=== PATIENT | female | born 1950 | race Caucasian/White ===

== ENCOUNTER 2017-02-09 13:22 | Inpatient (IN) | payer MEDICARE, MEDICAID ==
[~2017-02-09] VITALS: Ht 162.5 cm; Wt 85.5 kg
--- NOTE | 2017-02-09 | NUR ---
PRN MORPHINE EFFECTIVE FOR A SHORT TIME PER PT.
[~2017-02-09 13:22] MED LIST: AMBIEN10 M1 PO; AMBIEN10 MG PO; ATIVAN0.5 MG PO; BENTYL10 MG PO; CELEXA40 MG PO; CIPROFLOXACIN500 MG PO; COZAAR25 MG PO; FLAGYL500 MG PO; GEMFIBROZIL600 MG PO; HUMALOG100 U/ML SC; IMODIUM ADVANCE1 TAB; LANTUS100 U/ML SC; LEVOTHYROXIN0.025 MG PO; LOSARTAN POTASS50 MG PO; METFORMIN500 MG PO; MOTRIN800 MG PO; Metformin Hydr500 MG PO; NEXIUM40 MG PO; NOVOLOG 70/30 M10 ML; NOVOLOG 70/30 M10 ML SC; PRILOSEC40 MG PO; PROBIOTIC FORMU1 CAP PO; VALIUM10 MG PO; VICODIN 5/500 505 MG PO; VICODIN 500 MG-1 TAB PO; VICODIN1 TAB PO
[2017-02-09 13:33] VITALS: BP 112/52
[2017-02-09 14:02] LABS: BASO # 0.1 10*3/uL (0.0-0.1); BASO % 0.5 % (0.0-1.0); EOS # 0.2 10*3/uL (0.0-0.4); HEMATOCRIT 40.8 % (37.0-47.0); HEMOGLOBIN 13.9 g/dl (12.0-16.0); LYMPH # 3.7 10*3/uL (1.3-4.4); LYMPH % 38.6 % (27.0-41.0); MEAN CELL VOLUME 92.5 fl (81.0-99.0); MEAN CORPUSCULAR HGB 31.5 pg (27.0-31.0); MEAN CORPUSCULAR HGB CONC 34.1 g/dl (33.0-37.0); MEAN PLATELET VOLUME 9.9 fl (9.6-12.3); MONO # 0.8 10*3/uL (0.1-1.0); MONO % 8.1 % (3.0-9.0); NEUT # 4.8 10*3/uL (2.3-7.9); NEUT % 50.4 % (47.0-73.0); PLATELET COUNT AUTOMATED 227 10*3/uL (130-400); RED BLOOD COUNT 4.41 10*6/uL (4.10-5.10); WHITE BLOOD COUNT 9.6 10*3/uL (4.8-10.8)
--- NOTE | 2017-02-09 14:12 | NUR ---
PAIN BETTER AFTER DILAUDID. FELIPE CORRAL RN
[2017-02-09 14:22] LABS: ALBUMIN 3.6 gm/dl (3.1-4.5); ALKALINE PHOSPHATASE 79 U/L (45-117); BUN 17 mg/dl (7-24); CHLORIDE 103 mmol/L (98-107); CREATININE 0.98 mg/dL (0.55-1.02); LIPASE 186 U/L (73-393); POTASSIUM 3.9 mmol/L (3.5-5.1); SGOT/AST 18 IU/L (3-35); SGPT/ALT 36 U/L (12-78); SODIUM 138 mmol/L (136-145); TOTAL PROTEIN 7.3 gm/dL (6.4-8.2)
[2017-02-09 14:27] LABS: TROPONIN I < 0.015 ng/ml (<0.045)
[2017-02-09 14:47] LABS: BILIRUBIN NEGATIVE (NEGATIVE); BLOOD NEGATIVE (NEGATIVE); CLARITY SL CLOUDY (CLEAR); COLOR YELLOW (YELLOW); GLUCOSE 3+ (NEGATIVE); KETONE NEGATIVE (NEGATIVE); LEUKO ESTERASE 1+ (NEGATIVE); NITRITE NEGATIVE (NEGATIVE); SPECIFIC GRAVITY 1.015 (1.005-1.030); UROBILINOGEN 0.2 E.U./dl (0.2-1.0)
[2017-02-09 14:54] LABS: BACTERIA 1+; HYALINE CAST 0-2; RBC 0-2 rbc/hpf (0-2)
[2017-02-09 15:22] VITALS: BP 147/79
[2017-02-09 16:18] VITALS: BP 134/72
--- NOTE | 2017-02-09 16:20 | NUR ---
MEDICATED WITH ANOTHER DOSE OF DILAUDID ORDERED FOR RETURN OF PAIN. FELIPE CORRAL RN
--- NOTE | 2017-02-09 16:51 | NUR ---
PAIN IS BETTER AFTER DILAUDID. ASSISTED UP TO THE BATHROOM. FELIPE CORRAL RN
--- NOTE | 2017-02-09 18:15 | NUR ---
A 66, admitted to , under the services of TELMA Avelar DO with a diagnosis of UTI, TACHYCARDIA, ABD PAIN, LACTIC ACIDOSIS. Chief complaint is "I'M HAVING A DIVERTICULITIS FLARE UP", LLQ PAIN Patient arrived via from ER. Monitor applied. Initial assessment completed. Vital signs taken and recorded. TELMA AVELAR DO notified of admission to the unit. Orders received. See assessment for past medical history, medications and allergies. Patient and/or family oriented to unit. [facility] visitation policy reviewed. Clothing/patient valuable form completed. SARA DA SILVA
--- NOTE | 2017-02-09 18:52 | NUR ---
PT GIVEN PRN IV MORPHINE FOR COMPLAINTS OF LLQ PAIN, RATES PAIN AT 7/10. WILL MONITOR EFFECTIVENESS.
--- NOTE | 2017-02-09 18:53 | NUR ---
PATIENT WOULD LIKE FLU SHOT ON DISCHARGE
[2017-02-09] MEDS ORDERED: CRESTOR20 M1 PO (18:55)
[2017-02-09] MEDS ORDERED: LANTUS SOL100 UNIT/1 SQ (18:57)
[2017-02-09 20:00] VITALS: BP 145/70
--- NOTE | 2017-02-09 21:00 | NUR ---
PT STATES THAT MORPHINE WAS EFFECTIVE FOR A SHORT WHILE.
[2017-02-10] VITALS: BP 136/75
--- NOTE | 2017-02-10 01:00 | NUR ---
PT STATES THAT PAIN MED WAS SOMEWHAT EFFECTIVE FOR ABD PAIN.
--- NOTE | 2017-02-10 04:00 | NUR ---
PRN MORPHINE EFFECTIVE FOR PAIN RELIEF. PT RESTING QUIETLY IN BED.
--- NOTE | 2017-02-10 05:00 | NUR ---
PT MEDICATED WITH PRN ZOFRAN IVP FOR C/O NAUSEA. NO VOMITING. CECILIO KIM GIVEN TO PT WELL.
[2017-02-10 05:54] LABS: BASO % 0.4 % (0.0-1.0); EOS # 0.3 10*3/uL (0.0-0.4); EOS % 3.2 % (1.0-4.0); HEMATOCRIT 35.4 % (37.0-47.0); LYMPH # 3.4 10*3/uL (1.3-4.4); LYMPH % 42.3 % (27.0-41.0); MEAN CELL VOLUME 95.2 fl (81.0-99.0); MEAN CORPUSCULAR HGB 31.2 pg (27.0-31.0); MEAN CORPUSCULAR HGB CONC 32.8 g/dl (33.0-37.0); MEAN PLATELET VOLUME 9.7 fl (9.6-12.3); MONO # 0.7 10*3/uL (0.1-1.0); MONO % 8.2 % (3.0-9.0); NEUT # 3.7 10*3/uL (2.3-7.9); NEUT % 45.5 % (47.0-73.0); PLATELET COUNT AUTOMATED 193 10*3/uL (130-400); RED BLOOD COUNT 3.72 10*6/uL (4.10-5.10); RED CELL DISTRI WIDTH 12.1 % (0-14.5); WHITE BLOOD COUNT 8.1 10*3/uL (4.8-10.8)
[2017-02-10 05:59] LABS: HEMOGLOBIN 11.6 g/dl (12.0-16.0)
[2017-02-10 06:05] LABS: ALBUMIN 3.5 gm/dl (3.1-4.5); BUN 11 mg/dl (7-24); CHLORIDE 105 mmol/L (98-107); MAGNESIUM 1.7 mg/dL (1.5-2.1); POTASSIUM 3.5 mmol/L (3.5-5.1); SODIUM 142 mmol/L (136-145)
[2017-02-10 06:11] LABS: ACT PARTIAL THROMBO TIME 22.9 SECONDS (20.8-31.5)
[2017-02-10 06:12] LABS: ALKALINE PHOSPHATASE 51 U/L (45-117); CHOLESTEROL 113 mg/dL (<200); CREATININE 0.64 mg/dL (0.55-1.02); FREE T4 0.87 ng/dl (0.76-1.46); HDL CHOLESTEROL 34 mg/dl (40-60); LDL CHOLESTEROL 33 mg/dL (9-159); PHOSPHOROUS 3.4 mg/dL (2.5-4.9); SGOT/AST 21 IU/L (3-35); SGPT/ALT 31 U/L (12-78); TOTAL PROTEIN 6.2 gm/dL (6.4-8.2); TRIGLYCERIDES 230 mg/dl (<150); VLDL CHOLESTEROL 46 mg/dL (6-40)
[2017-02-10 07:08] LABS: VITAMIN D, 25-HYDROXY 40.7 ng/mL (30-100)
[2017-02-10 08:00] VITALS: BP 121/80
--- NOTE | 2017-02-10 08:30 | NUR ---
Engraving Press Operator in to talk to patient. Patient states lives at [address] with HER DAUGHTER. There are 2 steps in the home. Physician: [facility] Pharmacy: [facility] Home health services: NONE Patient's level of ADLs: INDEPENDENT Patient has working utilities: YES DME: NONE Follow-up physician's appointment after d/c: WILL BE MADE PRIOR TO DC Does patient want to access PORTAL?: Discharge plan HOME. GEORGE FLORES
[2017-02-10 12:00] VITALS: BP 106/59
--- NOTE | 2017-02-10 12:33 | NUR ---
MEDICATED WITH MOTRIN ORDERED FOR COMPLAINTS OF A HEADACHE.
[2017-02-10 16:00] VITALS: BP 149/64
[2017-02-10 20:00] VITALS: BP 128/41
--- NOTE | 2017-02-10 20:00 | NUR ---
PATIENT DENIES ANY PAIN AT THIS TIME, SHE STATES THAT THE LLQ PAIN SHE HAS BEEN HAVING IS FROM DIVERTICULOSIS. PATIENT DENIES ANY DIARRHEA. PATIENT DOES GET SHORT OF BREATH, PULSE OX DROPS WHEN ON RA. MAY NEED QUALIFIED FOR HOME O2. PATIENT DID ASK FOR A SLEEPING PILL LATER ON. WILL CONTINUE TO MONITOR. PATIENT LEFT WITH CALL LIGHT IN REACH.
--- NOTE | 2017-02-10 21:40 | NUR ---
PATIENT GIVEN RESTORIL TO HELP HER SLEEP. WILL REASSESS.
--- NOTE | 2017-02-10 22:47 | NUR ---
24 HR chart check completed.
--- NOTE | 2017-02-10 23:00 | NUR ---
PATIENT RESTING, NO DISTRESS NOTED. RESTORIL EFFECTIVE.
[2017-02-11] VITALS: BP 127/55
[2017-02-11 06:23] LABS: BUN 7 mg/dl (7-24); CHLORIDE 103 mmol/L (98-107); CREATININE 0.67 mg/dL (0.55-1.02); POTASSIUM 3.9 mmol/L (3.5-5.1); SODIUM 140 mmol/L (136-145)
[2017-02-11 06:37] LABS: BASO % 0.4 % (0.0-1.0); EOS # 0.3 10*3/uL (0.0-0.4); EOS % 4.8 % (1.0-4.0); HEMATOCRIT 34.2 % (37.0-47.0); LYMPH # 2.3 10*3/uL (1.3-4.4); LYMPH % 32.2 % (27.0-41.0); MEAN CELL VOLUME 95.5 fl (81.0-99.0); MEAN CORPUSCULAR HGB 30.7 pg (27.0-31.0); MEAN CORPUSCULAR HGB CONC 32.2 g/dl (33.0-37.0); MEAN PLATELET VOLUME 9.8 fl (9.6-12.3); MONO # 0.6 10*3/uL (0.1-1.0); MONO % 8.7 % (3.0-9.0); NEUT # 3.8 10*3/uL (2.3-7.9); NEUT % 53.6 % (47.0-73.0); PLATELET COUNT AUTOMATED 176 10*3/uL (130-400); RED BLOOD COUNT 3.58 10*6/uL (4.10-5.10)
[2017-02-11 08:00] VITALS: BP 134/62
--- NOTE | 2017-02-11 08:00 | NUR ---
IN BED AWAKE ALERT AND ORIENTED X3, NO C/O. NO S/S OF DISTRESS. SEE ASSESS. WILL CONT TO MONITOR. CALL LIGHT IN REACH. LABS REVIEWED.
[2017-02-11] MEDS ORDERED: AUGMENTIN 875875 MG PO (11:55)
--- NOTE | 2017-02-11 11:56 | NUR ---
PT WAS ASSESED FOR HOME OXYGEN. PT DID NOT QUALIFY PT AT REST SPO2 92% RA, HR 85, RR 18, BP 119/91 PT AMBULATED TWICE AROUND THE FOURTH FLOOR SPO2 90-93% RA PT AT REST SPO2 WAS 95% RA HR 102, RR20, BP 116/99
[2017-02-11 12:00] VITALS: BP 105/73
--- NOTE | 2017-02-11 14:07 | NUR ---
DISCHARGED AT THIS TIME. IV REMOVED AND PRESSURE DRESSING APPLIED. HEART MONITOR RETURNED TO FLOOR. VERBALIZED UNDERSTANDING OF DISCHARGE INSTRUCTIONS.
== END 2017-02-11 14:07 | disposition home or self-care (01) | DRG 690 ==
LOC: ED 13:22 → 4E 17:02 → EDHOLD 17:02 → 4E 17:09
PROVIDERS: Internal Medicine; Internal Medicine Hospice and Palliative Medicine; Student in an Organized Health Care Education/Training Program; ADMIT Internal Medicine
DX: N39.0 Urinary tract infection, site not specified (principal); E87.2 Acidosis; K44.9 Diaphragmatic hernia without obstruction or gangrene; R00.0 Tachycardia, unspecified; Z79.4 Long term (current) use of insulin; K57.30 Diverticulosis of large intestine without perforation or abscess without bleeding; F03.90 Unspecified dementia, unspecified severity, without behavioral disturbance, psychotic disturbance, mood disturbance, and anxiety; Z66 Do not resuscitate; Z51.5 Encounter for palliative care; E11.65 Type 2 diabetes mellitus with hyperglycemia; E03.9 Hypothyroidism, unspecified; K21.9 Gastro-esophageal reflux disease without esophagitis; I10 Essential (primary) hypertension; E78.00 Pure hypercholesterolemia, unspecified; F41.1 Generalized anxiety disorder; F32.9 Major depressive disorder, single episode, unspecified; B96.20 Unspecified Escherichia coli [E. coli] as the cause of diseases classified elsewhere; Z88.1 Allergy status to other antibiotic agents; Z88.8 Allergy status to other drugs, medicaments and biological substances; Z79.899 Other long term (current) drug therapy; Z98.1 Arthrodesis status; Z98.51 Tubal ligation status; Z83.3 Family history of diabetes mellitus; Z82.49 Family history of ischemic heart disease and other diseases of the circulatory system; Z80.9 Family history of malignant neoplasm, unspecified; Z87.891 Personal history of nicotine dependence; Z80.52 Family history of malignant neoplasm of bladder; Z68.32 Body mass index [BMI] 32.0-32.9, adult

== ENCOUNTER → 2017-03-21 | Day surgery (SDC) | payer MEDICARE, MEDICAID ==
[~2017-03-21] VITALS: Ht 165.1 cm; Wt 85.7 kg
[~2017-03-21] MED LIST changes: +AUGMENTIN 875875 MG PO; +CRESTOR20 M1 PO; +FLONASE ALLERG9.9 ML NAS; +LANTUS SOL100 UNIT/1 SQ; +NEURONTIN100 MG PO
--- NOTE | ~2017-03-21 | PROC NOTE ---
[place], [place] PROCEDURE NOTE NAME: SHLOMO PERRIN [facility] #: [id number] UNIT #: [id number] ROOM: DOCTOR: DELANO SCOTT MD BIRTHDATE: [birth year] DOS: 03/21/2017 PREOPERATIVE DIAGNOSES: Gastritis, history of colonic polyps. POSTOPERATIVE DIAGNOSES: Hiatal hernia, esophagitis, gastritis, sigmoid diverticulosis. PROCEDURE: Esophagogastroduodenoscopy with antral biopsies x 2, sigmoidoscopy. ENDOSCOPIST: Delano Scott MD CODER OPERATOR: BRAVO. ANESTHESIA: MAC. INDICATIONS: This is a 66-year-old lady with a history of previous gastritis and colonic polyps who is here for the above-mentioned procedure. The procedure and its complications were explained to the patient in detail preoperatively. Complications that were discussed included but were not limited to, bleeding, colon perforation, stomach perforation, and missed lesions. She agreed to proceed. DESCRIPTION OF PROCEDURE: After identifying the patient, the patient was brought to the endoscopy suite and placed in the left lateral position. After IV sedation was administered, a timeout procedure was called. It was decided to proceed with an EGD first. A bite block was placed and an adult gastroscope was introduced through the mouth into the pharynx, esophagus, stomach and the first 2 parts of the duodenum. There was found to be a moderate sized hiatal hernia with some esophagitis. Upon entering the stomach, there was found to be mild gastritis, which was confirmed with retroflexion of the scope. Upon entering the duodenum, the duodenum itself was within normal limits. The scope was withdrawn into the antrum area and two random biopsies were performed and sent for histopathological diagnosis. After hemostasis was confirmed, the scope was withdrawn and the patient was then placed for a colonoscopy. A digital rectal exam was performed, which was within normal limits. An adult colonoscope was now introduced into the anal canal and advanced sequentially to the rectum and sigmoid colon up to about 25 cm. Despite multiple attempts, the scope could not be advanced beyond this point. There was found to have multiple diverticulosis, but there were no polyps that could be identified. The patient was placed in a supine position and again the scope could not be advanced beyond 25 cm. At this point, the scope was withdrawn and the patient was brought back to the recovery room in stable fashion. There were no complications. Based on these findings, the patient is recommended to have a barium enema in the near future and based on that we will proceed with another attempt at a colonoscopy. These findings were confirmed with the patient's daughter in the postoperative recovery room. [place], [place] PROCEDURE NOTE NAME: SHLOMO PERRIN UNIT #: [id number] ROOM: DOCTOR: DELANO SCOTT MD BIRTHDATE: [birth year] Delano Scott MD CM:PROCNOTE:PROCEDURE NOTE [id number] DELANO SCOTT MD
[2017-03-21 08:15] VITALS: BP 139/73
[2017-03-21 10:45] VITALS: BP 123/44
[2017-03-21 10:58] VITALS: BP 112/61
[2017-03-21 11:15] VITALS: BP 124/66
== END | disposition home or self-care (01) ==
LOC: SDC 03-20 14:00
DX: K29.50 Unspecified chronic gastritis without bleeding (principal); K44.9 Diaphragmatic hernia without obstruction or gangrene; K57.30 Diverticulosis of large intestine without perforation or abscess without bleeding; K20.9 Esophagitis, unspecified; F32.9 Major depressive disorder, single episode, unspecified; E11.9 Type 2 diabetes mellitus without complications; F41.9 Anxiety disorder, unspecified; E78.00 Pure hypercholesterolemia, unspecified; Z98.51 Tubal ligation status; Z82.49 Family history of ischemic heart disease and other diseases of the circulatory system

== ENCOUNTER 2019-04-29 11:56 | Inpatient (IN) | payer MEDICARE ==
[2019-04-29] VITALS (38 sets, daily range): BP systolic 81–141; BP diastolic 37–97
[~2019-04-29] VITALS: Ht 163 cm; Wt 91.3 kg
[2019-04-29 12:28] LABS: BASO % 0.5 % (0.0-1.0); EOS # 0.2 10*3/uL (0.0-0.4); EOS % 2.5 % (1.0-4.0); HEMATOCRIT 48.7 % (37.0-47.0); HEMOGLOBIN 15.6 g/dl (12.0-16.0); LYMPH # 1.8 10*3/uL (1.3-4.4); LYMPH % 20.1 % (27.0-41.0); MEAN CELL VOLUME 98.4 fl (81.0-99.0); MEAN CORPUSCULAR HGB 31.5 pg (27.0-31.0); MEAN PLATELET VOLUME 9.8 fl (9.6-12.3); MONO # 0.7 10*3/uL (0.1-1.0); MONO % 8.4 % (3.0-9.0); NEUT % 67.9 % (47.0-73.0); PLATELET COUNT AUTOMATED 232 10*3/uL (130-400); RED BLOOD COUNT 4.95 10*6/uL (4.10-5.10); WHITE BLOOD COUNT 8.8 10*3/uL (4.8-10.8)
[2019-04-29 12:38] LABS: ACT PARTIAL THROMBO TIME 25.7 SECONDS (20.0-32.1)
[2019-04-29 12:45] LABS: ALBUMIN 3.5 gm/dl (3.1-4.5); CREATININE 1.91 mg/dL (0.55-1.02); PHOSPHOROUS 2.6 mg/dL (2.5-4.9); POTASSIUM 3.4 mmol/L (3.5-5.1); TOTAL PROTEIN 6.9 gm/dL (6.4-8.2)
[2019-04-29 12:52] LABS: TROPONIN I 0.334 ng/ml (<0.045)
[2019-04-29 12:54] LABS: CKMB 6.6 ng/ml (0.5-3.6)
--- NOTE | 2019-04-29 12:56 | NUR ---
ANANYA STEWART NOTIFIED OF CRITICAL CKMB OF 6.6, AND LATIC ACID OF 6.4
[2019-04-29 13:02] LABS: ARTERIAL BLOOD GAS PH 7.242 (7.35-7.45)
[2019-04-29 13:09] LABS: BILIRUBIN NEGATIVE (NEGATIVE); BLOOD TRACE-INTACT (NEGATIVE); CLARITY CLOUDY (CLEAR); COLOR YELLOW (YELLOW); GLUCOSE 3+ (NEGATIVE); KETONE NEGATIVE (NEGATIVE); LEUKO ESTERASE 1+ (NEGATIVE); NITRITE NEGATIVE (NEGATIVE); PH 5.5 (5.0-9.0); SPECIFIC GRAVITY 1.025 (1.005-1.030); UROBILINOGEN 0.2 E.U./dl (0.2-1.0)
[2019-04-29 13:21] LABS: BACTERIA 2+; WBC 16-20 wbc/hpf (0-5)
--- NOTE | 2019-04-29 13:23 | NUR ---
PT PLACED ON BIPAP 18/10, 8, 100% PER TERRY FISHER, PT TOLERATING WELL. PT HR 104, SPO2 85%
--- NOTE | 2019-04-29 13:43 | NUR ---
LEVOFED STARTED AT 4MG/HR BY LIDIA Gutierrez
--- NOTE | 2019-04-29 14:01 | NUR ---
THE LEVOFED WAS UP TO 12MCQ BY SREEDHAR Gutierrez
--- NOTE | 2019-04-29 14:08 | NUR ---
A THIRD IV LINE WAS STARTED. 0.9NS WAS APPLIED WITH A PRESSURE BAG
[2019-04-29] MEDS ORDERED: IBU800 M1 PO (14:39)
[2019-04-29] MEDS ORDERED: DICLOFENAC SOD75 MG PO (16:02)
[2019-04-29] MEDS ORDERED: TRADJENTA5 M1 PO (16:02)
[2019-04-29] MEDS ORDERED: BYETTA5 MCG/0.02 SC (16:07)
--- NOTE | 2019-04-29 16:50 | NUR ---
NOTIFIED OF NEW CONSULT ORDER. NEW ORDER RECEIVED TO OBTAIN ECHO IN AM.
--- NOTE | 2019-04-29 17:23 | NUR ---
NOTIFIED OF NEW CONSULT ORDER.
[2019-04-29 17:26] LABS: CREATININE 1.69 mg/dL (0.55-1.02)
--- NOTE | 2019-04-29 17:27 | NUR ---
NOTIFIED OF NEW CONSULT ORDER.
--- NOTE | 2019-04-29 17:34 | NUR ---
.A 68, admitted to ICCU, under the services of JAY Burgos FACP, MD with a diagnosis of RHABDOMYLOSIS, SEPSIS. Chief complaint is SOB, FALL. Patient arrived via ambulance from ER. Monitor applied. Initial assessment completed. Vital signs taken and recorded. JAY BURGOS FACP, MD notified of admission to the unit. Orders received. See assessment for past medical history, medications and allergies. Patient and/or family oriented to unit. [facility] ICCU visitation policy reviewed. Clothing/patient valuable form completed. VASQUEZ GARCIA
[2019-04-29 17:48] LABS: POTASSIUM 4.7 mmol/L (3.5-5.1)
[2019-04-29 17:52] LABS: ARTERIAL BLOOD GAS PH 7.205 (7.35-7.45)
[2019-04-29 17:53] LABS: ABG BASE EXCESS -8.9 mmol/L (-2.0-2.0)
--- NOTE | 2019-04-29 19:59 | NUR ---
[address] WITH PERSONNEL ACCOMPANYING FOR CT OF ABD.
--- NOTE | 2019-04-29 20:25 | NUR ---
1949 RESTING IN BED WITH HOB ELEVATED. SIDE RAILS UP X'S 2. CALL LIGHT IN REACH. PULSE OX 90% ON HIGH FLOW 02 VIA NC AT 10L. LEVOPHED GTT CONT. SEE INTERVENTION SCREEN FOR Q15MIN BP'S. TENA PATENT AND DRAINING CLEAR ROBIN URINE. IV FLUIDS CONT. NO DISTRESS NOTED. NO C/O'S VOICED.
--- NOTE | 2019-04-29 20:59 | NUR ---
HOSPITALIST CALLED AND INFORMED THAT PATIENT REQUESTING SOMETHING FOR ACID REFLEX. STATED THEY WILL PUT SOMETHING IN.
--- NOTE | 2019-04-29 21:46 | NUR ---
2130 BIPAP APPLIED AFTER PT ATE HER DINNER. LEVOPHED GTT BEING TITRATED DOWN FOR IMPROVING BP. WILL CONT TO MONITOR.
--- NOTE | 2019-04-29 23:22 | NUR ---
2250 RESTORIL FOR SLEEP. 0 PULLED BIPAP OFF. WANTS TO TAKE "A REST". PLACED BACK ON HIGH FLOW NC. PULSE OX 88%. INSTRUCTED THAT SHE WILL HAVE TO PUT HER BIPAP BACK ON,
[2019-04-30] VITALS (61 sets, daily range): BP systolic 82–145; BP diastolic 31–84
--- NOTE | 2019-04-30 00:40 | NUR ---
0000 PLACED BACK ON BIPAP. Q15MIN BP'S CONT. SEE INTERVENTION SCREEN. PULSE OX 97%. PT IS FORGETFUL.
--- NOTE | 2019-04-30 01:07 | NUR ---
PT IS CONFUSED. KEEPS PULLING BIPAP OFF AND TRYING TO GET OOB. BED ALARM APPLIED. FREQUENT RE-ORIENTATION GIVEN REGARDING IMPORTANCE OF LEAVING BIPAP ON. PULSE OX IS 88% ON HIGH FLOW NC AT 12L.
--- NOTE | 2019-04-30 03:07 | NUR ---
PT PULLED BIPAP OFF AGAIN. PLACED ON HIGH FLOW NC. PULSE OX 97%. CONFUSED AND UNCOOOPERATIVE.
--- NOTE | 2019-04-30 04:27 | NUR ---
0350 ZOFRAN IV GIVEN FOR C/O'S NAUSEA. NO EMESIS NOTED. 0425 MORPHINE 2MG IV GIVNE FOR C/O'S SEVERE H/A. PT REMAINS NPO.
--- NOTE | 2019-04-30 04:49 | NUR ---
EARLIER MEDS SL EFFECTIVE.
[2019-04-30 05:32] LABS: ALBUMIN 2.9 gm/dl (3.1-4.5); CREATININE 1.15 mg/dL (0.55-1.02); FREE T4 0.87 ng/dl (0.76-1.46); POTASSIUM 4.7 mmol/L (3.5-5.1); THYROID STIM HORMONE (HS) 1.03 uIU/ml (0.358-4.75); TOTAL PROTEIN 6.2 gm/dL (6.4-8.2)
--- NOTE | 2019-04-30 05:37 | NUR ---
0515 PULSE OX 85% ON HIGH FLOW NC. PALCED BACK ON BIPAP. PULSE OX UP TO 96%.WILL CONT TO MONITOR.
[2019-04-30 06:12] LABS: HEMATOCRIT 39.6 % (37.0-47.0); HEMOGLOBIN 12.6 g/dl (12.0-16.0); MEAN CORPUSCULAR HGB 31.2 pg (27.0-31.0); MEAN CORPUSCULAR HGB CONC 31.8 g/dl (33.0-37.0); MEAN PLATELET VOLUME 10.3 fl (9.6-12.3); PLATELET COUNT AUTOMATED 182 10*3/uL (130-400); RED BLOOD COUNT 4.04 10*6/uL (4.10-5.10); RED CELL DISTRI WIDTH 12.4 % (0-14.5); WHITE BLOOD COUNT 18.7 10*3/uL (4.8-10.8)
--- NOTE | 2019-04-30 06:12 | NUR ---
BIPAP INTACT, BUT PT KEEPS REMOVING. LEVOPHED CONT AT 7MICS. BED ALARM INTACT. PT REMAINS CONFUSED. PULSE OX 96%. CONDITION GUARDED.
--- NOTE | 2019-04-30 06:48 | NUR ---
06 DTR CALLED AND INFORMED OF PT CONFUSION. STATES HER MOTHER HAS BEEN CONFUSED FOR APPROX 3 WEEKS AT HOME. 06 PT YELLING BIPAP RIPPED OFF. STATES "I'M LEAVING. GET AWAY FROM ME." DR. SANCHEZ CALLED AND INFORMED. ORDERS RECEIVED. [address] GILLILAND CALLED AND INFORMED OF CONSULT. 0645 ATIVAN 0.5 MG IV GIVEN FOR AGITATION. WILL MONITOR. PT REFUSES TO LEAVE BIPAP ON. PULSE OX 89% ON HIGH FLOW 02 VIA [place].
--- NOTE | 2019-04-30 07:30 | NUR ---
PATIENT VERY AGITATED THIS MORNING. REFUSING ABGS TO BE DRAWN. STATES "NICK HAD ENOUGH." POX 92% ON 12 HFNC. PATIENT ALERT AND ORIENTED X3. BUT THEN STATES IM GETTING OUT OF THIS BED AND GOING TO SIT ON THE COUCH. RN INFORMED PATIENT THAT THERE IS NO COUCH. SHE STATED THEN I WILL GO FIND ONE. WILL CONTINUE TO MONITOR.
[2019-04-30 07:38] LABS: VITAMIN D, 25-HYDROXY 22.4 ng/mL (30-100)
[2019-04-30 07:40] LABS: TOTAL CELLS COUNTED 100 #CELLS
[2019-04-30 07:42] LABS: PLATELET SUFFICIENCY NORMAL (NORMAL); TOXIC GRANULATION SLIGHT; VACUOLATION OF NEUTROPHILS SLIGHT
--- NOTE | 2019-04-30 09:24 | NUR ---
Occupational therapy orders received and chart reviewed. Per nursing, patient is not appropriate at this time secondary to fluctuating BP and increased oxygen demand. Will follow up with patient. Thank you. Meggan Dias OTR/L
--- NOTE | 2019-04-30 09:30 | NUR ---
PHYSICAL THERAPY Attempted to see pt in ICU continues to be aggitated and requring use of BIPAP not appropriate per nsg to be seen at this time will follow Dalia Tripp PT
--- NOTE | 2019-04-30 11:13 | NUR ---
PATIENT AGITATED WITH STAFF AND DAUGHTER. DAUGHTER LEFT BEDSIDE CRYING. PATIENT ATTEMPTING TO CLIMB OUT OF BED. AT BEDSIDE. NEW ORDER RECEIVED FOR HALDOL 2.5MG IV X1 NOW.
--- NOTE | 2019-04-30 12:46 | NUR ---
PRN TYLENOL SUPPOSITORY GIVEN FOR A HEADACHE.
--- NOTE | 2019-04-30 14:36 | NUR ---
HAVE ATTEMPTED TO USE OTHER DELIVERY SYSTEMS OF OXYGEN MULTIPLE TIMES WITH ALL MET WITH REFUSALS. PATIENT HAS REFUSED TO USE BIPAP, AND OPTIFLOW. PATIENT IS CURRENTLY ON A 15L HIGH FLOW NASAL CANNULA UP FROM 12L BEFORE. CONTINUING TO MINITOR.
[2019-04-30 16:11] LABS: ABG BASE EXCESS -1.7 mmol/L (-2.0-2.0); ARTERIAL BLOOD GAS PH 7.309 (7.35-7.45)
--- NOTE | 2019-04-30 16:50 | NUR ---
CALLED IN AND UPDATED ON PATIENT CONDITION. RECOMMENDING INTUBATION. RN SPOKE WITH FAMILY AND THEY ARE IN AGREEANCE WITH INTUBATION. AND DRILLING AND PRODUCTION SUPERINTENDENT NOTIFIED.
--- NOTE | 2019-04-30 17:00 | NUR ---
PATIENT INTUBATED WITH 7.5 ETT 24 LIP. SEDATED WITH 20 ETOMIDATE AND 100 SUCCS. #16 OGT INSERTED. PATIENT TOLERATED WELL.
[2019-04-30 19:41] LABS: ARTERIAL BLOOD GAS PH 7.282 (7.35-7.45)
--- NOTE | 2019-04-30 20:11 | NUR ---
1950 PT RESTLESS AND TRYING TO SIT UP. DIPRIVAN GTT INCREASED TO 30MICS. VERSED 5MG IV FOR THIS AND EFFECTIVE. 2004 DR. MEZA CALLED WITH ABG RESULTS. RESPIRATORY THERAPY HERE AND VENT CHANGES MADE.
--- NOTE | 2019-04-30 20:28 | NUR ---
RESTING IN BED WITH HOB ELEVATED. SIDE RAILS UP X'S 2. NPO. ORAL AND EYE CARE DONE. SUCTIONED ORALLY AND VIA TUBE. SEE INTERVENTION SCREEN. WRIST RESTRAINTS INTACT BILATERALLY. CIRCULATION ADEQUATE. DIPRIVAN GTT CONT FOR SEDATION. IV FLUIDS MAINAINED. TENA PATENT AND DRAINING CLEAR YELLOW URINE. NO DISTRESS NOTED.
--- NOTE | 2019-04-30 20:43 | NUR ---
20:[address] MEZA : VT 550 SET RATE 20 FIO2 60% PEEP 12. PREVIOUS AB.28/PCO2 52/ PO2 134. REPEAT ABG AT 21:15. PT TOLERATING WELL.
[2019-04-30 21:40] LABS: ARTERIAL BLOOD GAS PH 7.387 (7.35-7.45)
--- NOTE | 2019-04-30 21:46 | NUR ---
DR. MEZA CALLED WITH ABG RESULTS. ORDERS RECEIVED.
--- NOTE | 2019-04-30 23:53 | NUR ---
21:50 FIO2 DECREASED TO 50% PER DR MEZA. PO2 96 ON 60% VIA VENT. RN AWARE
[2019-05-01] VITALS (12 sets, daily range): BP systolic 92–145; BP diastolic 47–72
--- NOTE | 2019-05-01 00:17 | NUR ---
REMAINS ADEQUATELY SEDATED ON DIPRIVAN GTT. IN NO VISIBLE DISTRESS.
--- NOTE | 2019-05-01 03:27 | NUR ---
VERSED 5MG IV FOR RESTLESSNESS AND EFFECTIVE.
[2019-05-01 05:53] LABS: ALBUMIN 2.6 gm/dl (3.1-4.5); ALKALINE PHOSPHATASE 50 U/L (45-117); BUN 14 mg/dl (7-24); CHLORIDE 115 mmol/L (98-107); CREATININE 0.71 mg/dL (0.55-1.02); PHOSPHOROUS 1.1 mg/dL (2.5-4.9); POTASSIUM 3.9 mmol/L (3.5-5.1); SGOT/AST 60 IU/L (3-35); SGPT/ALT 51 U/L (12-78); SODIUM 143 mmol/L (136-145); TOTAL PROTEIN 5.6 gm/dL (6.4-8.2)
--- NOTE | 2019-05-01 06:07 | NUR ---
ET SECURE TO VENT. PULSE OX 98%. DIPRIVAN CONT AT 30MICS. NO DISTRESS NOTED. CONDITION GUARDED.
[2019-05-01 06:50] LABS: HEMOGLOBIN 11.9 g/dl (12.0-16.0); MEAN CELL VOLUME 99.2 fl (81.0-99.0); MEAN CORPUSCULAR HGB 31.9 pg (27.0-31.0); MEAN CORPUSCULAR HGB CONC 32.2 g/dl (33.0-37.0); PLATELET COUNT AUTOMATED 130 10*3/uL (130-400); RED BLOOD COUNT 3.73 10*6/uL (4.10-5.10); RED CELL DISTRI WIDTH 12.7 % (0-14.5); WHITE BLOOD COUNT 18.7 10*3/uL (4.8-10.8)
[2019-05-01 07:16] LABS: ABG BASE EXCESS -1.5 mmol/L (-2.0-2.0); ARTERIAL BLOOD GAS PH 7.386 (7.35-7.45)
[2019-05-01 07:35] LABS: BASOPHILS 1 % (0-1); PLATELET SUFFICIENCY NORMAL (NORMAL); TOTAL CELLS COUNTED 100 #CELLS
[2019-05-01 07:36] LABS: VACUOLATION OF NEUTROPHILS SLIGHT
--- NOTE | 2019-05-01 09:55 | NUR ---
PATIENT TO SURGERY FOR BRONCHOSCOPY.
--- NOTE | 2019-05-01 10:30 | NUR ---
PATIENT RETURNED FROM SURGERY. RIGHT ARM ARTERIAL LINE NOW IN PLACE.
[2019-05-02] VITALS (10 sets, daily range): BP systolic 107–167; BP diastolic 46–71
[2019-05-02 05:56] LABS: ALBUMIN 2.4 gm/dl (3.1-4.5); ALKALINE PHOSPHATASE 70 U/L (45-117); BUN 11 mg/dl (7-24); CHLORIDE 116 mmol/L (98-107); CPK 790 U/L (26-192); CREATININE 0.68 mg/dL (0.55-1.02); POTASSIUM 4.1 mmol/L (3.5-5.1); SGOT/AST 53 IU/L (3-35); SGPT/ALT 50 U/L (12-78); SODIUM 144 mmol/L (136-145); TOTAL PROTEIN 5.9 gm/dL (6.4-8.2)
[2019-05-02 06:12] LABS: BASO % 0.2 % (0.0-1.0); EOS # 0.1 10*3/uL (0.0-0.4); EOS % 0.5 % (1.0-4.0); HEMATOCRIT 34.7 % (37.0-47.0); LYMPH # 2.3 10*3/uL (1.3-4.4); LYMPH % 13.5 % (27.0-41.0); MEAN CELL VOLUME 98.3 fl (81.0-99.0); MEAN CORPUSCULAR HGB 31.2 pg (27.0-31.0); MEAN CORPUSCULAR HGB CONC 31.7 g/dl (33.0-37.0); MEAN PLATELET VOLUME 10.6 fl (9.6-12.3); MONO # 0.6 10*3/uL (0.1-1.0); MONO % 3.7 % (3.0-9.0); NEUT # 13.9 10*3/uL (2.3-7.9); NEUT % 81.6 % (47.0-73.0); NUCLEATED RED BLOOD CELL 0.1 % (0.0-0.0); PLATELET COUNT AUTOMATED 143 10*3/uL (130-400); RED BLOOD COUNT 3.53 10*6/uL (4.10-5.10); RED CELL DISTRI WIDTH 12.8 % (0-14.5); WHITE BLOOD COUNT 17.1 10*3/uL (4.8-10.8)
[2019-05-02 06:19] LABS: ABG BASE EXCESS -4.2 mmol/L (-2.0-2.0); ARTERIAL BLOOD GAS PH 7.428 (7.35-7.45)
--- NOTE | 2019-05-02 08:30 | NUR ---
TURNED AND REPOSITIONED ONTO RIGHT SIDE. PULSE OX 99% ON VENT. LUNGS CLEAR BILATERALLY. EDEMA NOTED TO BILATERAL FEET. TENA DRAINING CLEAR YELLOW URINE. NS INFSING AT 100CC/HR AND DIPRIVAN GTT INFUSING AT 50 HILARY'S.
--- NOTE | 2019-05-02 10:59 | NUR ---
SEDATION TURNED OFF. AFTER 15 MIN'S EYES OPEN AND ABLE TO FOLLOW COMMANDS. DIPRIVAN RESTARTED AT 40MIC'S VIA RIGHT ARM.
--- NOTE | 2019-05-02 12:50 | NUR ---
DIPRIVAN GTT TURNED OFF. ONCE AWAKE TO BE PLACED ON C-PAP
--- NOTE | 2019-05-02 12:50 | NUR ---
DR. MEZA HERE. OGT REMOVED AND DOBB OFF PLACED IN LEFT NARE.
[2019-05-02 13:08] LABS: ACID FAST SPEC PROCESSING Concentration (.)
[2019-05-02 15:26] LABS: ARTERIAL BLOOD GAS PH 7.353 (7.35-7.45)
--- NOTE | 2019-05-02 15:35 | NUR ---
DR. MEZA NOTIFIED OF ABG RESULTS. ORDERS RECEIVED TO EXTUBATE
--- NOTE | 2019-05-02 15:44 | NUR ---
EXTUBATED AND PLACED ON NASAL CANNULA 4L.
--- NOTE | 2019-05-02 16:07 | NUR ---
MEDICATED WITH NORCO FOR COMPLAINTS OF PAIN IN BACK.
--- NOTE | 2019-05-02 16:46 | NUR ---
THRASHING AROUND IN BED. MOANING. KICKING LEGS UP. WHEN ASKED "WHATS WRONG, NO RESPONSE."
--- NOTE | 2019-05-02 17:47 | NUR ---
MEDICATED WITH HALDOL 5MG IV FOR RESTLESSNESS AND AGITATION.
--- NOTE | 2019-05-02 18:17 | NUR ---
PATIENT WAS EXTUBATED PER DR MEZA AT 1540. ON HIGH FLOW CANNULA OF 8LNC PATIENT WAS SITTING AT A SPO2 OF 87-89%. PLACED ON OPTIFLOW AT 60% AND 45 L AND SPO2 IS AT 93% NURSE AWARE.
--- NOTE | 2019-05-02 21:35 | NUR ---
MEDICATED WITH NORCO AND RESTORIL PER PRN ORDERS FOR C/O PAIN AND INSOMNIA.
--- NOTE | 2019-05-02 22:30 | NUR ---
RESTORIL AND NORCO EFFECTIVE.
[2019-05-03] VITALS: BP 143/62
--- NOTE | 2019-05-03 00:10 | NUR ---
MEDICATED WITH HALDO PER PRN ORDER FOR AGITATION AND RESTLESSNESS.
[2019-05-03 04:00] VITALS: BP 162/68
[2019-05-03 05:49] LABS: ALBUMIN 2.7 gm/dl (3.1-4.5); ALKALINE PHOSPHATASE 112 U/L (45-117); BUN 6 mg/dl (7-24); CHLORIDE 109 mmol/L (98-107); CREATININE 0.47 mg/dL (0.55-1.02); POTASSIUM 3.2 mmol/L (3.5-5.1); SGOT/AST 53 IU/L (3-35); SGPT/ALT 55 U/L (12-78); SODIUM 143 mmol/L (136-145); TOTAL PROTEIN 6.4 gm/dL (6.4-8.2)
[2019-05-03 05:54] LABS: BASO % 0.2 % (0.0-1.0); EOS % 0.1 % (1.0-4.0); HEMATOCRIT 35.9 % (37.0-47.0); HEMOGLOBIN 11.9 g/dl (12.0-16.0); LYMPH # 1.8 10*3/uL (1.3-4.4); LYMPH % 12.9 % (27.0-41.0); MEAN CORPUSCULAR HGB 31.3 pg (27.0-31.0); MEAN CORPUSCULAR HGB CONC 33.1 g/dl (33.0-37.0); MEAN PLATELET VOLUME 10.5 fl (9.6-12.3); MONO # 0.8 10*3/uL (0.1-1.0); MONO % 5.6 % (3.0-9.0); NEUT # 11.4 10*3/uL (2.3-7.9); NEUT % 80.1 % (47.0-73.0); PLATELET COUNT AUTOMATED 174 10*3/uL (130-400); RED CELL DISTRI WIDTH 12.3 % (0-14.5); WHITE BLOOD COUNT 14.2 10*3/uL (4.8-10.8)
[2019-05-03 06:16] LABS: MEAN CELL VOLUME 94.5 fl (81.0-99.0)
--- NOTE | 2019-05-03 06:17 | NUR ---
SHLOMO PERRIN [id number] Please refer to the physician's history and physical for past medical history, comorbid conditions, and allergies. Diagnosis: SEPTIC SHOCK RESPIRATORY FAILURE RHABDOMYOLYSIS Mac Score: 16,AT RISK WOUND DESCRIPTIONS: Wound Number: 1 Location of the wound: left elbow Type of wound: skin tear Thickness: Partial Size: 2.5cm x 3.4cm x 0.1cm Tunneling: none Undermining: none Sinus Tract: none Presence of Exudate: Serous Amount: Light Color: Red Odor: None Periwound Skin Appearance: Erythema Wound edges: approximated Pain (associated with wound): denied at time of assessmetn How does patient state this happened? patient unsure how this happened. Surface the patient is resting on: Isoflex SKIN PREVENTION RECOMMENDATION: 1. Pressure redistribution support surface as appropriate 2. Elevate heels 3. Remove boots/TEDS every shift and reapply 4. Head of bed 30 degrees as tolerated 5. Assess nutrition and hydration 6. Manage moisture 7. Avoid the use of containment devices while in bed 8. Use absorptive products on surfaces limit layers of linens on bed 9. Turn and reposition every 1-2 hours in bed and every 1 hour in chair as tolerated 10. Weight shifts every 15 minutes while up in chair 11. Offloading with pillows or device to keep heels elevated off bed 12. Monitor skin at least every shift 13. Inspect under medical devices twice a day WOUND TREATMENT RECOMMENDATIONS: Skin tear guidelines: Cleanse with nss apply sureprep around the wound apply versatel to wound bed apply hydrogel and cover with optifoam gentle.
[2019-05-03 08:00] VITALS: BP 163/69
[2019-05-03 08:12] LABS: ABG BASE EXCESS 1.5 mmol/L (-2.0-2.0); ARTERIAL BLOOD GAS PH 7.449 (7.35-7.45)
--- NOTE | 2019-05-03 09:00 | NUR ---
DR MEZA HERE AND UPDATED ON CONDITION.
--- NOTE | 2019-05-03 10:42 | NUR ---
TAKEN CIARA TO X-RAY FOR CT ABDOMEN
--- NOTE | 2019-05-03 11:41 | NUR ---
Occupational therapy orders received and chart reviewed. Patient has been extubated; however, she is on 50% Optiflow. Per nursing, she is not appropriate at this time. Will follow up with the patient when she is appropriate. Thank you. Meggan Dias OTR/L
--- NOTE | 2019-05-03 11:51 | NUR ---
PHYSICAL THERAPY Pt extubated however on 50% optiflow, per nsg to defer therapy today will follow and assess when medically appropriate. Dalia Tripp PT
[2019-05-03 12:00] VITALS: BP 156/68
--- NOTE | 2019-05-03 12:56 | NUR ---
patient previously was from home alone, discharge plan at this time is undecided, case management/principal planner will follow and make referral when appropriate
[2019-05-03 16:00] VITALS: BP 154/66
--- NOTE | 2019-05-03 19:24 | NUR ---
CHART CHECK COMPLETE.
[2019-05-03 20:00] VITALS: BP 165/70
--- NOTE | 2019-05-03 20:10 | NUR ---
JUNAIDCO PER PT REQUEST FOR ABDOMINAL DISCOMFORT.
--- NOTE | 2019-05-03 20:51 | NUR ---
COMPLETE BATH AND BED LINEN CHANGE DONE. PT WAS COOPERATIVE AND ASSISTED WITH TURNING.
[2019-05-04] VITALS: BP 159/68
--- NOTE | 2019-05-04 00:30 | NUR ---
NORCO AND RESTORIL WERE NOT EFFECTIVE. PT WAS YELLING OUT FOR TALHA AND RESTLESS DESPITE COMFORT MEASURES. HALDOL WAS GIVEN ORDERED.
--- NOTE | 2019-05-04 02:38 | NUR ---
PT APPEARS TO BE MORE COMFORTABLE AND CALMER SINCE ADMINISTRATION OF ZOFRAN AT 0115.
[2019-05-04 04:00] VITALS: BP 154/72
--- NOTE | 2019-05-04 04:17 | NUR ---
Upon discharge recommend patient to follow up for wound care in outpatient setting continue current wound care orders at discharging facility.
--- NOTE | 2019-05-04 05:19 | NUR ---
PT FREQUENTLY UTILIZES CALL LIGHT, EVEN RIGHT AFTER STAFF LEAVES HER SIDE. PT TEACHING DONE AND EMOTIONAL SUPPORT GIVEN. PT C/O ABDOMINAL DISCOMFORT...NORCO GIVEN ORDERED.
[2019-05-04 05:39] LABS: ALBUMIN 2.7 gm/dl (3.1-4.5); ALKALINE PHOSPHATASE 113 U/L (45-117); BUN 6 mg/dl (7-24); CHLORIDE 103 mmol/L (98-107); CREATININE 0.53 mg/dL (0.55-1.02); POTASSIUM 3.3 mmol/L (3.5-5.1); SGOT/AST 39 IU/L (3-35); SGPT/ALT 55 U/L (12-78); SODIUM 141 mmol/L (136-145); TOTAL PROTEIN 7.2 gm/dL (6.4-8.2)
[2019-05-04 05:42] LABS: HEMATOCRIT 41.5 % (37.0-47.0); HEMOGLOBIN 13.8 g/dl (12.0-16.0); MEAN CORPUSCULAR HGB 30.9 pg (27.0-31.0); MEAN CORPUSCULAR HGB CONC 33.3 g/dl (33.0-37.0); MEAN PLATELET VOLUME 10.6 fl (9.6-12.3); NUCLEATED RED BLOOD CELL 0.2 % (0.0-0.0); PLATELET COUNT AUTOMATED 226 10*3/uL (130-400); RED BLOOD COUNT 4.46 10*6/uL (4.10-5.10); WHITE BLOOD COUNT 11.1 10*3/uL (4.8-10.8)
--- NOTE | 2019-05-04 06:29 | NUR ---
NORCO APPEARS TO HAVE BEEN EFFECTIVE....PT DOZING, BODY RELAXED.
[2019-05-04 06:54] LABS: ATYPICAL LYMPHS 3 % (0-0); PLATELET SUFFICIENCY NORMAL (NORMAL); TOTAL CELLS COUNTED 100 #CELLS
[2019-05-04 08:00] VITALS: BP 146/70
--- NOTE | 2019-05-04 08:41 | NUR ---
Called and spoke with daughter Isabella; she stated patient lives alone in her own apartment and is normally independent. She stated patient went through this about 4 years ago and ended up going to the [facility] for some rehab therapy. Once discharged she lived with her daughter and son in law in a mobile home, but the daughter got and lost the mobile home so her mother got her own apartment. She states patients base line is not confused or non verbal; She agrees that patient will most likely need rehab upon discharge and would like a referral made to [facility]. Contacted facility and faxed referral. Will require PT/OT evals and a precert.
--- NOTE | 2019-05-04 09:00 | NUR ---
PHYSICAL THERAPY Yadiel completed pt high complexity level 21090 recomend SNF at discharge. PT to work on strengthening,transfers,amb,balance/safety. Full report to follow Dalia Tripp PT
--- NOTE | 2019-05-04 09:00 | NUR ---
Occupational Therapy evaluation completed in ICCU with full eval to follow. Precautions include ICCU, fall risk,o2, NG tube, IV UE,high complexity level 30874. Recommend OT per POC for functional transfers, mobility,ADLs,UE strength per pOC and SNF to enable return home alone. Thank you. Benita Albarran OTR/l
--- NOTE | 2019-05-04 10:00 | NUR ---
RIGHT ARM ART LINE DISCONTINUED.
[2019-05-04 12:00] VITALS: BP 165/79
[2019-05-04 16:00] VITALS: BP 143/62
--- NOTE | 2019-05-04 17:45 | NUR ---
NGT D/C. PATIENT TOLERATED SOFT DIET.
[2019-05-04 20:00] VITALS: BP 129/68
--- NOTE | 2019-05-04 20:46 | NUR ---
MEDICATED WITH 2 TYLENOL FOR COMPLAINTS OF A HEADACHE
--- NOTE | 2019-05-04 22:50 | NUR ---
MEDICATED WITH RESTORIL ORDERED FOR SLEEP
--- NOTE | 2019-05-04 22:50 | NUR ---
MEDICATED WITH RESTORIL REQUESTED FOR SLEEP
--- NOTE | 2019-05-04 23:30 | NUR ---
SLEEPING WITH EYES CLOSED
[2019-05-05] VITALS: BP 153/77
[2019-05-05 04:00] VITALS: BP 178/79
--- NOTE | 2019-05-05 06:02 | NUR ---
AWAKE MOST OF THE NIGHT, ON/OFF BEDPAN MULTIPLE TIMES WITH NO SUCCESS.
[2019-05-05 06:21] LABS: ALBUMIN 2.6 gm/dl (3.1-4.5); ALKALINE PHOSPHATASE 95 U/L (45-117); BUN 9 mg/dl (7-24); CHLORIDE 106 mmol/L (98-107); CREATININE 0.56 mg/dL (0.55-1.02); PHOSPHOROUS 2.4 mg/dL (2.5-4.9); POTASSIUM 3.4 mmol/L (3.5-5.1); SGOT/AST 25 IU/L (3-35); SGPT/ALT 45 U/L (12-78); SODIUM 140 mmol/L (136-145)
[2019-05-05 06:28] LABS: HEMATOCRIT 43.2 % (37.0-47.0); HEMOGLOBIN 14.1 g/dl (12.0-16.0); MEAN CELL VOLUME 94.1 fl (81.0-99.0); MEAN CORPUSCULAR HGB 30.7 pg (27.0-31.0); MEAN CORPUSCULAR HGB CONC 32.6 g/dl (33.0-37.0); MEAN PLATELET VOLUME 10.1 fl (9.6-12.3); PLATELET COUNT AUTOMATED 260 10*3/uL (130-400); RED BLOOD COUNT 4.59 10*6/uL (4.10-5.10); RED CELL DISTRI WIDTH 12.2 % (0-14.5); WHITE BLOOD COUNT 11.2 10*3/uL (4.8-10.8)
[2019-05-05 07:04] LABS: BASOPHILS 1 % (0-1); TOTAL CELLS COUNTED 100 #CELLS
[2019-05-05 07:05] LABS: PLATELET SUFFICIENCY NORMAL (NORMAL); POLYCHROMASIA SLIGHT; TOXIC GRANULATION SLIGHT
[2019-05-05 08:00] VITALS: BP 144/80
--- NOTE | 2019-05-05 08:11 | NUR ---
PATIENT HAD VERY LOOSE (NOT LIQUID) STOOL THAT WAS DARK IN COLOR - NO ODOR OF BLEED. SSTOOL CULTURERESULT CALLED TO DR CRAWLEY
--- NOTE | 2019-05-05 08:12 | NUR ---
Shift chart check completed.
[2019-05-05 12:00] VITALS: BP 138/76
--- NOTE | 2019-05-05 12:54 | NUR ---
DR GLOVER CALLED ABOUT CONSULT - CASE REVIEWED -- REQUESTED ID BE CONSULTED. CONSULT PLACED TO ANSWERING SERVICE
--- NOTE | 2019-05-05 13:00 | NUR ---
DR PORTER CALLED BACK IN & CASE REVIEWED... CONTINUE NIKKI ONLY AND THEY WILL SEE THE PATIENT.
[2019-05-05 16:00] VITALS: BP 143/78
--- NOTE | 2019-05-05 18:22 | NUR ---
MARIAH PERRIN FROM ID HERE TO SEE PATIENT. SEE HER DICTATION
[2019-05-05 20:00] VITALS: BP 146/86
--- NOTE | 2019-05-05 21:00 | NUR ---
PATIENT REQUESTED A SLEEPING PILL.RESTORIL GIVEN. WILL MONITOR AND REASSESS.
--- NOTE | 2019-05-05 21:46 | NUR ---
24 HR chart check completed.
[2019-05-06] VITALS: BP 129/72
--- NOTE | 2019-05-06 03:55 | NUR ---
Upon discharge recommend patient to follow up for wound care in outpatient setting continue current wound care orders at discharging facility.
[2019-05-06 04:00] VITALS: BP 154/87
[2019-05-06 05:06] LABS: ALBUMIN 2.7 gm/dl (3.1-4.5); ALKALINE PHOSPHATASE 83 U/L (45-117); BUN 13 mg/dl (7-24); CHLORIDE 107 mmol/L (98-107); CREATININE 0.59 mg/dL (0.55-1.02); POTASSIUM 3.5 mmol/L (3.5-5.1); SGOT/AST 19 IU/L (3-35); SGPT/ALT 41 U/L (12-78); SODIUM 140 mmol/L (136-145); TOTAL PROTEIN 6.8 gm/dL (6.4-8.2)
[2019-05-06 05:59] LABS: HEMATOCRIT 42.8 % (37.0-47.0); MEAN CELL VOLUME 95.1 fl (81.0-99.0); MEAN CORPUSCULAR HGB 31.1 pg (27.0-31.0); MEAN CORPUSCULAR HGB CONC 32.7 g/dl (33.0-37.0); PLATELET COUNT AUTOMATED 316 10*3/uL (130-400); RED CELL DISTRI WIDTH 12.5 % (0-14.5); WHITE BLOOD COUNT 11.2 10*3/uL (4.8-10.8)
[2019-05-06 06:30] LABS: POLYCHROMASIA SLIGHT; TOTAL CELLS COUNTED 100 #CELLS
[2019-05-06 06:31] LABS: PLATELET SUFFICIENCY NORMAL (NORMAL); TOXIC GRANULATION SLIGHT
[2019-05-06 08:00] VITALS: BP 157/85
--- NOTE | 2019-05-06 08:30 | NUR ---
OT NOTE Pt was seen this A.M. 1:1 for 30 minute OT session. Upon arrival pt was supine in bed. Pt identified by name and and had no complaints at this time other than generalized fatigue and weakness. Pt's resting heart rate was 105 bpm and SpO2 was 95%. Pt transferred supine to sit EOB with modA for assist with UB. Educated pt on techniques for increased I in bed mobility with use of bed rail, pt presented with poor carry over. While sitting EOB requested for pt to donned B socks and pt was unable due to F- sitting balance requiring Onel for UE support. Challenged pt's dynamic sitting balance while sitting EOB, while weight shifting, crossing midline, and reaching over all planes pt was able to maintain F- sitting balance throughout. Pt completed multiple sit to stand transfers from bed level with Onel x 2 HIDE BUFFER. Challenged pt's static standing tolerance needed for increased I in self care task and functional transfers. Pt was able to tolerate aprox 60 seconds before sitting due to fatigue. Standing pivot completed from the EOB to the bedside commode with Onel HIDE BUFFER. She there transferred on to the bedside commode with Onel and off with modA X 2 , clothing management completed with Onel, and toilet hygiene completed with SBA while seated. Standing pivot was then completed from the bedside commode to the recliner with Onel. While sitting upright in the recliner pt completed BUE towel exercises over all planes of motion for 1 X 10 to increase UE strength. Pt was left sitting uproght in the recliner with call light in hand, tray table in place, and ICCU nurse notified. Continue with rec D/C plan to SNF. DENIS Kuhn
--- NOTE | 2019-05-06 09:00 | NUR ---
patient was referred to [facility] for when she is medically stable for discharge, personal financial planner and case management will follow
--- NOTE | 2019-05-06 09:02 | NUR ---
PHYSICAL THERAPY Patient presented to therapy in [facility] with head of bed elevated and report of no pain. Patient was identified by name and on WRISTBAND. Patient gives informed consent for treatment. Patient performed supine to sitting on EOB transfer with MOD A X 1. Patient sat on EOB with CGA X 1. Patient sit to stand from EOB MIN A X 2 with verbal cues for pushing off the bed with bilateral hands. Patient side-stepped to bedside chair with HOME CARE CHAPLAIN X 2. Patient sat in bedside chair with MIN A X 2 and verbal cues for putting hands back on armrests of chair. Patient sit to stand out of bedside chair with MIN A X 2. Patient side-stepped to bedside commode with HOME CARE CHAPLAIN X 2. Patient sat back onto coomode with MIN A X 2. Patient sit to stand off of bedside commode with MOD A X 2. Patient performed side stepping back to bedside chair with HOME CARE CHAPLAIN X 2. Patient sat in bedside chair with MIN A X 2 with verbal cues for putting hands back on armrests of chair. Patient sat in bedside chair and performed bilateral LE ther ex x 16 reps each including LAQs and marches for strengthening in order to improve patient's functional mobility. Patient was left in bedside chair with call light within reach and O2 sats at 88% on finger pulse OX. Patient was 1:1 with this HORSE RACE STARTER for 25 minutes total. DOROTHY MAZARIEGOS HORSE RACE STARTER
--- NOTE | 2019-05-06 10:17 | NUR ---
Patient updated clinicals faxed to [facility] asked to start precert. Waiting for auth.
[2019-05-06 12:00] VITALS: BP 132/77
--- NOTE | 2019-05-06 13:04 | NUR ---
RN HAS FELT PATIENT WAS MORE CONFUSED TODAY THAT YESTERDAY - UNSURE IF JUST BECAUSE SHE SIS NOT SLEEP WELL LAST NIGHT BUT ALL VITAL SIGNS & O2 SATS HAVE BEEN WITHIN NORMAL RANGE. ABG ORDERED AFTER DAUGHTER HERE TALKING WITH PATIENT & PATIENT IS NOT LIKE YESTERDAY & IS MUCH MORE CONFUSED & HALLUCINATING. SOME APPROPRIATE ANSWERS
--- NOTE | 2019-05-06 13:24 | NUR ---
Arterial blood gases drawn from right radial after 1 attempt. The procedure was explained to the patient. The Piotr's test was performed with satisfactory results. The artery was palpated. [id number] prep to site. The specimen was obtained and sent to the lab on ice. Digital pressure applied x 5 minutes. Pressure dressing applied. No bleeding or hematoma. Pulses equal bilaterally. HARDY VIEYRA
[2019-05-06 13:29] LABS: ABG BASE EXCESS 0.6 mmol/L (-2.0-2.0); ARTERIAL BLOOD GAS PH 7.444 (7.35-7.45)
--- NOTE | 2019-05-06 13:40 | NUR ---
OT NOTE Pt was seen this P.M. 1:1 for second OT session consisting of 17 minutes. Upon arrival pt was sitting upright in the recliner. Pt identified by name and and had no complaints at this time. Pt presented to therapy with increased confusion as indicated by stating "you just missed the wedding that just happened here in front of my room" and "eww look at the bugs on the walker, I am afraid of them." No bugs in sight. Pt completed sit to stand transfers from chair level with modA X 2 and use of w/w for UE support. Challenged pt's dynamic standing tolerance needed for increased I in self care tasks and functional transfers. Pt was able to tolerate aprox 4 minutes before sitting due to fatigue. Pt was left sitting upright in the recliner with call light in hand and ICCU nurse notified. Continue with rec D/C plan to SNF. VAL Kuhn/Sierra
--- NOTE | 2019-05-06 13:44 | NUR ---
PHYSICAL THERAPY TREATMENT TIME: 1:30 - 1:50 Patient presented to therapy in sitting position with visitor at bedside. Patient just had blood gases taken by RN in ICCU. Patient gives informed consent for treatment. Patient is not on heart monitor at this time. Patient performed sit to stand from bedside chair with MOD A X 2. Patient ambulated with Wh Walker and CGA X 1 for 52' x 1 with no LOB and no significant SOB. Patient is NOT on heart monitor or spO2. Patient sat in bedside chair ,that was rolled up behind her, with CGA X 2 and verbal cues for putting hands back on armrests of chair. Patient was left in bedside chair with call light within reach and tray table beside patient. Patient was 1:1 with this GREEN FEED ATTENDANT for 20 minutes total. DOROTHY MAZARIEGOS GREEN FEED ATTENDANT
--- NOTE | 2019-05-06 14:12 | NUR ---
PLACED ON NC2L AFTER ABG RESULTS BACK & PO2 61
--- NOTE | 2019-05-06 15:54 | NUR ---
PER ANIBAL FROM [place] THEY HAVE APPROVED FOR PT TO GO TO [facility]. THEY STATE THEY HAVE INFORMED FACILITY TOO. ATTEMPTED TO NOTIFY [facility] HOSPITALIST NURSE SHANIA BUT UNABLE TO REACH HER. WILL RETRY.
[2019-05-06 16:00] VITALS: BP 135/65
--- NOTE | 2019-05-06 16:20 | NUR ---
PER ANGE AT [facility] THEY HAVE AUTH FOR PT TO GO TO [facility]. DR MCNEILL NOTIFIED BUT STATES PT IS NOT READY FOR DISCHARGE TONIGHT. WILL CONTINUE TO FOLLOW.
--- NOTE | 2019-05-06 16:22 | NUR ---
ATTEMPTED TO CALL DR JHAVERI TO SEE IF PT WAS READY FOR DISCHARGE TO [facility]. NO ANSWER ON HOSPITALIST PHONE [phone].
--- NOTE | 2019-05-06 16:26 | NUR ---
CALL DR TAPIA AND INFORMED HIM WE HAD AUTH FOR PT TO GO TO [facility]. HE WILL CALL ME BACK AND LET ME KNOW IF PT CAN BE DISCHARGED.
--- NOTE | 2019-05-06 16:34 | NUR ---
PER DR BASURTO PT IS NOT READY FOR DISCHARGE TONIGHT.
[2019-05-06 20:00] VITALS: BP 129/67
--- NOTE | 2019-05-06 23:01 | NUR ---
24 HR chart check completed.
[2019-05-07] VITALS: BP 150/82
--- NOTE | 2019-05-07 03:27 | NUR ---
24 HR chart check completed.
[2019-05-07 06:26] LABS: BASO # 0.1 10*3/uL (0.0-0.1); BASO % 0.5 % (0.0-1.0); EOS # 0.1 10*3/uL (0.0-0.4); EOS % 0.8 % (1.0-4.0); HEMATOCRIT 41.5 % (37.0-47.0); HEMOGLOBIN 13.5 g/dl (12.0-16.0); LYMPH # 3.9 10*3/uL (1.3-4.4); LYMPH % 32.6 % (27.0-41.0); MEAN CELL VOLUME 95.8 fl (81.0-99.0); MEAN CORPUSCULAR HGB 31.2 pg (27.0-31.0); MEAN CORPUSCULAR HGB CONC 32.5 g/dl (33.0-37.0); MONO # 0.8 10*3/uL (0.1-1.0); MONO % 6.9 % (3.0-9.0); NEUT # 6.7 10*3/uL (2.3-7.9); NEUT % 57.1 % (47.0-73.0); PLATELET COUNT AUTOMATED 336 10*3/uL (130-400); RED BLOOD COUNT 4.33 10*6/uL (4.10-5.10); RED CELL DISTRI WIDTH 12.6 % (0-14.5); WHITE BLOOD COUNT 11.8 10*3/uL (4.8-10.8)
[2019-05-07 06:58] LABS: BUN 15 mg/dl (7-24); CHLORIDE 107 mmol/L (98-107); CREATININE 0.62 mg/dL (0.55-1.02); PHOSPHOROUS 3.6 mg/dL (2.5-4.9); POTASSIUM 3.7 mmol/L (3.5-5.1); SODIUM 141 mmol/L (136-145)
--- NOTE | 2019-05-07 07:06 | NUR ---
Patient has received auth for [facility], ok to go if medically stable for discharge.
[2019-05-07 08:00] VITALS: BP 127/52
--- NOTE | 2019-05-07 09:10 | NUR ---
OT NOTE Attempted to see pt this A.M. for OT session and upon arrival pt was supine in bed with complaints of feeling nauseated. Will check back at a later time/date and continue with POC as able. VAL Kuhn/Sierra
[2019-05-07] MEDS ORDERED: DOXYCYCLINE100 M3 PO (09:38)
--- NOTE | 2019-05-07 09:40 | NUR ---
PHYSICAL THERAPY Patient was approached for AM therapy session at 9:20 am and patient said she was nauseous and wanted to rest and do therapy later in the AM. Will check back later. DOROTHY MAZARIEGOS MANAGER MARKET DEVELOPMENT
[2019-05-07] MEDS ORDERED: OMNICEF300 MG PO (09:42)
--- NOTE | 2019-05-07 11:20 | NUR ---
OFFICE STAFF WAS NOTIFIED OF BEHAVIORAL HEALTH CONSULT CONSULT. RESPONSE OF NOTIFICATION WAS OK I WILL PUT IT IN.. LAYO SCHAFER
[2019-05-07 12:00] VITALS: BP 127/48
--- NOTE | 2019-05-07 13:16 | NUR ---
OT NOTE Pt was seen this P.M. for OT session consisting of 20 minutes. Upon arrival pt was supine in bed. Pt identified by name and and had no complaints at this time. Pt transferred supine to sit EOB with CGA and use of bed rail for UE support. Sit to stand completed from bed level with CGA and use of w/w. Functional mobility was then completed into the bathroom with CGA and use of w/w. There she transferred on/off standard commode with CGA and use of grab bar for UE support. Clothing management completed with Onel and toilet hygiene completed with SBA while seated. Pt then stood sink side while washing her hands with CGA. Pt then transferred back into bed sit to supine with Onel for assist with RLE. There she was left with call light in hand, tray table in place, and bed alarm activated for safety. Continue with rec D/C plan to SNF. DENIS Kuhn
--- NOTE | 2019-05-07 14:09 | NUR ---
PHYSICAL THERAPY TREATMENT TIME: 12:55 PM - 1:20 PM Patient presented to therapy in supine with head of bed elevated and bed alarm activated. Patient gives informed consent for treatment. Patient was identified by name and on wristband. Patient reports that she feels much better this afternoon. Patient is on 2 liters of spO2 via nasal canula with green tubing. Patient performed supine to sitting at EOB transfer with SBA. Patient sit to stand transfer from EOB to Walker with CGA X 1. Patient performed ambulation with Walker and CGA X 1 for 30' X 1 and then sat in low chair in hallway with CGA X 1. Patient performed TUG TEST from low chair in 1 minute 52 seconds with Wh Walker and CGA X 1. Patient required MIN A X 1 out of low chair for TUG TEST. Patient was wheeled back to bedside due to fatigue with MIN A X 2 out of low chair and SPT transfer to EOB with GUM ROLLING MACHINE OPERATOR X 2. Patient transferred back to supine in bed with SBA. Patient was left in supine in bed with head of bed elevated, call light within reach and bed alarm activated. Patient was 1:1 with this CAR STOWER for 25 minutes total. DOROTHY MAZARIEGOS CAR STOWER
[2019-05-07 16:00] VITALS: BP 130/72; BP 97/61
--- NOTE | 2019-05-07 16:40 | NUR ---
PHYSICAL THERAPY CO-SIGN I approve of the Phyical Therapy notes written above. Dalia Tripp PT
--- NOTE | 2019-05-07 16:41 | NUR ---
OCCUPATIONAL THERAPY CO-SIGN I approve of the Occupational Therapy notes written above. MARYANN ACE OTR/Sierra
--- NOTE | 2019-05-07 17:04 | NUR ---
AUTH FOR [facility] IS GOOD THROUGH THE WEEKEND PER [facility] C[facility] SPECIALIST.
[2019-05-07 20:00] VITALS: BP 134/50
[2019-05-08] VITALS: BP 124/70
[2019-05-08 08:00] VITALS: BP 105/46
[2019-05-08 12:00] VITALS: BP 110/50; BP 110/52
--- NOTE | 2019-05-08 14:33 | NUR ---
REPORT CALLED TO DEON AT [facility].
--- NOTE | 2019-05-08 15:04 | NUR ---
PT DISCHARGED AT THIS TIME. IV REMOVED AND PRESSURE DRESSING APPLIED. TRANSPORTED BY DAUGHTER TO [facility] VIA PRIVATE CAR.
== END 2019-05-08 15:57 | disposition other institution (70) | DRG 871 ==
LOC: ED 11:56 → ICCU 14:06 → 5E 05-06 15:49
PROVIDERS: Emergency Medicine; Internal Medicine; Internal Medicine Critical Care Medicine; Internal Medicine Nephrology; Nurse Practitioner Family; ADMIT Internal Medicine
PROC: 5A09357 Assistance with Respiratory Ventilation, Less than 24 Consecutive Hours, Continuous Positive Airway Pressure (ICD-10-PCS; principal; 2019-04-29)
PROC: 5A1945Z Respiratory Ventilation, 24-96 Consecutive Hours (ICD-10-PCS; 2019-04-30)
PROC: 0BH17EZ Insertion of Endotracheal Airway into Trachea, Via Natural or Artificial Opening (ICD-10-PCS; 2019-04-30)
PROC: 0B958ZZ Drainage of Right Middle Lobe Bronchus, Via Natural or Artificial Opening Endoscopic (ICD-10-PCS; 2019-05-01)
PROC: 03HY32Z Insertion of Monitoring Device into Upper Artery, Percutaneous Approach (ICD-10-PCS; 2019-05-01)
PROC: 0B938ZZ Drainage of Right Main Bronchus, Via Natural or Artificial Opening Endoscopic (ICD-10-PCS; 2019-05-01)
PROC: 0B978ZZ Drainage of Left Main Bronchus, Via Natural or Artificial Opening Endoscopic (ICD-10-PCS; 2019-05-01)
PROC: 0B9B8ZZ Drainage of Left Lower Lobe Bronchus, Via Natural or Artificial Opening Endoscopic (ICD-10-PCS; 2019-05-01)
PROC: 0B948ZZ Drainage of Right Upper Lobe Bronchus, Via Natural or Artificial Opening Endoscopic (ICD-10-PCS; 2019-05-01)
PROC: 0B968ZZ Drainage of Right Lower Lobe Bronchus, Via Natural or Artificial Opening Endoscopic (ICD-10-PCS; 2019-05-01)
PROC: 0B988ZZ Drainage of Left Upper Lobe Bronchus, Via Natural or Artificial Opening Endoscopic (ICD-10-PCS; 2019-05-01)
PROC: 0B998ZZ Drainage of Lingula Bronchus, Via Natural or Artificial Opening Endoscopic (ICD-10-PCS; 2019-05-01)
PROC: 0B918ZZ Drainage of Trachea, Via Natural or Artificial Opening Endoscopic (ICD-10-PCS; 2019-05-01)
DX: A41.9 Sepsis, unspecified organism (principal); J69.0 Pneumonitis due to inhalation of food and vomit; R65.21 Severe sepsis with septic shock; J96.01 Acute respiratory failure with hypoxia; N17.0 Acute kidney failure with tubular necrosis; J96.02 Acute respiratory failure with hypercapnia; E87.4 Mixed disorder of acid-base balance; N39.0 Urinary tract infection, site not specified; K52.1 Toxic gastroenteritis and colitis; F23 Brief psychotic disorder; T79.6XXA Traumatic ischemia of muscle, initial encounter; E87.6 Hypokalemia; R29.6 Repeated falls; F32.9 Major depressive disorder, single episode, unspecified; I10 Essential (primary) hypertension; E78.5 Hyperlipidemia, unspecified; K57.90 Diverticulosis of intestine, part unspecified, without perforation or abscess without bleeding; E66.09 Other obesity due to excess calories; E78.00 Pure hypercholesterolemia, unspecified; E03.9 Hypothyroidism, unspecified; I44.7 Left bundle-branch block, unspecified; E83.39 Other disorders of phosphorus metabolism; B96.20 Unspecified Escherichia coli [E. coli] as the cause of diseases classified elsewhere; K37 Unspecified appendicitis; K82.8 Other specified diseases of gallbladder; Z66 Do not resuscitate; Z51.5 Encounter for palliative care; F41.1 Generalized anxiety disorder; K21.9 Gastro-esophageal reflux disease without esophagitis; E11.65 Type 2 diabetes mellitus with hyperglycemia; F03.90 Unspecified dementia, unspecified severity, without behavioral disturbance, psychotic disturbance, mood disturbance, and anxiety; T36.95XA Adverse effect of unspecified systemic antibiotic, initial encounter; Y92.238 Other place in hospital as the place of occurrence of the external cause; W18.30XA Fall on same level, unspecified, initial encounter; Y93.89 Activity, other specified; Y92.098 Other place in other non-institutional residence as the place of occurrence of the external cause; Y99.8 Other external cause status; Z79.4 Long term (current) use of insulin; Z87.891 Personal history of nicotine dependence; Z88.1 Allergy status to other antibiotic agents; Z88.8 Allergy status to other drugs, medicaments and biological substances; Z98.51 Tubal ligation status; Z80.52 Family history of malignant neoplasm of bladder; Z83.3 Family history of diabetes mellitus; Z82.49 Family history of ischemic heart disease and other diseases of the circulatory system; Z79.899 Other long term (current) drug therapy; Z68.34 Body mass index [BMI] 34.0-34.9, adult

== ENCOUNTER → 2020-12-26 | Outpatient (CLI) | payer MEDICARE ==
[~2020-12-26] MED LIST changes: +BYETTA5 MCG/0.02 SC; +DICLOFENAC SOD75 MG PO; +DOXYCYCLINE100 M3 PO; +IBU800 M1 PO; +OMNICEF300 MG PO; +TRADJENTA5 M1 PO
== END | disposition home or self-care (01) ==
LOC: US 09:21
PROVIDERS: ATTEND Physician Assistant
DX: K76.0 Fatty (change of) liver, not elsewhere classified (principal); I10 Essential (primary) hypertension; E11.9 Type 2 diabetes mellitus without complications; G62.9 Polyneuropathy, unspecified; F41.1 Generalized anxiety disorder; K76.89 Other specified diseases of liver

== ENCOUNTER 2021-04-22 07:25 | Emergency (ER) | payer MEDICARE ==
[~2021-04-22] VITALS: Ht 170.1 cm; Wt 63.5 kg
[2021-04-22] MEDS ORDERED: LANTUS SOL100 UNIT/1 SC (07:26)
[2021-04-22] MEDS ORDERED: HUMALOG100 UNIT/2 SC (07:26)
[2021-04-22] MEDS ORDERED: TRULICITY0.75 MG/0. SC (07:27)
[2021-04-22] MEDS ORDERED: MIDODRINE HCL5 M1 PO (07:28)
[2021-04-22] MEDS ORDERED: SUNMARK ALLERGY10 M1 PO (07:28)
[2021-04-22] MEDS ORDERED: TRAZODONE100 MG PO (07:29)
[2021-04-22 07:46] LABS: BASO % 0.2 % (0.0-1.0); HEMATOCRIT 33.5 % (37.0-47.0); LYMPH # 1.2 10*3/uL (1.3-4.4); MEAN CELL VOLUME 90.8 fl (81.0-99.0); MEAN CORPUSCULAR HGB 30.1 pg (27.0-31.0); MEAN CORPUSCULAR HGB CONC 33.1 g/dl (33.0-37.0); MEAN PLATELET VOLUME 9.5 fl (9.6-12.3); MONO # 1.1 10*3/uL (0.1-1.0); MONO % 6.6 % (3.0-9.0); NEUT # 14.7 10*3/uL (2.3-7.9); NEUT % 85.2 % (47.0-73.0); PLATELET COUNT AUTOMATED 256 10*3/uL (130-400); RED BLOOD COUNT 3.69 10*6/uL (4.10-5.10); RED CELL DISTRI WIDTH 12.4 % (0-14.5); WHITE BLOOD COUNT 17.2 10*3/uL (4.8-10.8)
[2021-04-22 08:01] LABS: ALBUMIN 2.7 gm/dl (3.1-4.5); ALKALINE PHOSPHATASE 68 U/L (45-117); BUN 15 mg/dl (7-24); CHLORIDE 102 mmol/L (98-107); CREATININE 1.03 mg/dL (0.55-1.02); POTASSIUM 3.2 mmol/L (3.5-5.1); SGOT/AST 25 IU/L (3-35); SGPT/ALT 30 U/L (12-78); SODIUM 135 mmol/L (136-145); TOTAL PROTEIN 7.1 gm/dL (6.4-8.2)
[2021-04-22] MEDS ORDERED: POTASSIUM CHLO20 ME3 PO (15:49)
== END 2021-04-22 15:56 | disposition home or self-care (01) ==
LOC: ED 07:25
PROVIDERS: Internal Medicine
DX: E11.65 Type 2 diabetes mellitus with hyperglycemia (principal); F17.210 Nicotine dependence, cigarettes, uncomplicated; Z88.1 Allergy status to other antibiotic agents; Z88.8 Allergy status to other drugs, medicaments and biological substances; Z79.899 Other long term (current) drug therapy

== ENCOUNTER → 2021-08-01 | Outpatient (CLI) | payer OTHER ==
[~2021-08-01] MED LIST changes: +BAYER ASPIRIN C81 MG PO; +BENTYL10 MG/1 ML PO; +CELEXA10 MG PO; +CEPHALEXIN500 M1 PO; +CETIRIZINE10 MG PO; +CITALOPRAM40 MG PO; +DESYREL; +DICYCLOMINE HCL10 MG PO; +FENOFIBRATE145 M1 PO; +GABAPENTIN800 MG PO; +HUMALOG100 UNIT/2 SC; +LANTUS SOL100 UNIT/1 SC; +LISINOPRIL5 MG PO; +METOPROLOL SUCC25 M2 PO; +MIDODRINE HCL5 M1 PO; +OMEPRAZOLE40 MG PO; +POTASSIUM CHLO20 ME3 PO; +POTASSIUM CHLO20 ME4 PO; +PRILOSEC20 M1 PO; +PROAIR HFA8.5 GM INH; +SUNMARK ALLERGY10 M1 PO; +SYNTHROID25 MCG PO; +TRAZODONE100 MG PO; +TRAZODONE50 MG PO; +TRULICITY0.75 MG/0. SC
== END | disposition home or self-care (01) ==
LOC: CARD 01:38
PROVIDERS: ATTEND Physician Assistant
DX: I21.4 Non-ST elevation (NSTEMI) myocardial infarction (principal)

== ENCOUNTER 2022-04-27 13:33 | Emergency (ER) | payer OTHER ==
[~2022-04-27] VITALS: Ht 177.8 cm; Wt 75.3 kg
[2022-04-27] MEDS ORDERED: BENTYL PO (13:56)
[2022-04-27] MEDS ORDERED: TRULICITY0.75 MG/0. SC (13:57)
[2022-04-27] MEDS ORDERED: LANTUS SOL100 UNIT/1 SQ (13:58)
[2022-04-27] MEDS ORDERED: TRIMETHOPRIM100 MG PO (13:59)
[2022-04-27 14:54] LABS: BASO % 0.1 % (0.0-1.0); EOS # 0.1 10*3/uL (0.0-0.4); EOS % 0.7 % (1.0-4.0); HEMATOCRIT 42.6 % (37.0-47.0); LYMPH # 0.4 10*3/uL (1.3-4.4); LYMPH % 5.1 % (27.0-41.0); MEAN CELL VOLUME 92.2 fl (81.0-99.0); MEAN CORPUSCULAR HGB CONC 33.6 g/dl (33.0-37.0); MEAN PLATELET VOLUME 9.8 fl (9.6-12.3); MONO # 0.4 10*3/uL (0.1-1.0); MONO % 5.1 % (3.0-9.0); NEUT # 6.2 10*3/uL (2.3-7.9); NEUT % 88.6 % (47.0-73.0); PLATELET COUNT AUTOMATED 178 10*3/uL (130-400); RED BLOOD COUNT 4.62 10*6/uL (4.10-5.10); RED CELL DISTRI WIDTH 11.9 % (0-14.5); WHITE BLOOD COUNT 7.1 10*3/uL (4.8-10.8)
[2022-04-27 15:11] LABS: ACT PARTIAL THROMBO TIME 24.2 SECONDS (20.0-32.1)
[2022-04-27 15:20] LABS: ALKALINE PHOSPHATASE 50 U/L (46-116); BUN 12 mg/dl (9-23); CHLORIDE 100 mmol/L (98-107); CREATININE 0.94 mg/dL (0.55-1.02); POTASSIUM 3.9 mmol/L (3.4-5.1); SGPT/ALT 20 U/L (10-49); SODIUM 135 mmol/L (136-145); TOTAL PROTEIN 7.2 gm/dL (6.0-8.0)
[2022-04-27 15:25] LABS: BILIRUBIN Negative (Negative); BLOOD Negative (Negative); CLARITY Clear (Clear); COLOR Yellow (Yellow); GLUCOSE 1+ (Negative); KETONE Negative (Negative); LEUKO ESTERASE Negative (Negative); NITRITE Negative (Negative); UROBILINOGEN 0.2 E.U./dl (0.0-1.0)
[2022-04-27 16:08] LABS: BACTERIA 1+; RBC 0-2 rbc/hpf (0-2)
== END 2022-04-27 19:00 | disposition home or self-care (01) ==
LOC: ED 13:33
PROVIDERS: Family Medicine
DX: R42 Dizziness and giddiness (principal); E86.0 Dehydration; Z88.1 Allergy status to other antibiotic agents; Z88.8 Allergy status to other drugs, medicaments and biological substances; Z79.899 Other long term (current) drug therapy; Z79.82 Long term (current) use of aspirin; Z98.51 Tubal ligation status; Z98.890 Other specified postprocedural states; Z87.891 Personal history of nicotine dependence

== ENCOUNTER 2023-09-09 14:54 | Emergency (ER) | payer OTHER ==
[~2023-09-09] VITALS: Ht 162.5 cm; Wt 77.1 kg
[~2023-09-09 14:54] MED LIST changes: +BENTYL PO; +EYE HEALTH ADU1 EACH PO; +MULTI-VITAMIN1 EACH PO; +TRIMETHOPRIM100 MG PO; +TRULICITY3 MG/0.5 M SQ
[2023-09-09] MEDS ORDERED: SODIUM CHLORIDE 0.9% 1,000 ML IV ONE (15:05)
[2023-09-09 15:30] LABS: BASO % 0.3 % (0.0-1.0); EOS # 0.1 10*3/uL (0.0-0.4); EOS % 1.3 % (1.0-4.0); HEMATOCRIT 44.1 % (37.0-47.0); LYMPH # 1.8 10*3/uL (1.3-4.4); LYMPH % 23.4 % (27.0-41.0); MEAN CELL VOLUME 96.1 fl (81.0-99.0); MEAN CORPUSCULAR HGB 30.3 pg (27.0-31.0); MEAN CORPUSCULAR HGB CONC 31.5 g/dl (33.0-37.0); MEAN PLATELET VOLUME 10.2 fl (9.6-12.3); MONO # 0.6 10*3/uL (0.1-1.0); MONO % 7.9 % (3.0-9.0); NEUT # 5.2 10*3/uL (2.3-7.9); NEUT % 66.6 % (47.0-73.0); PLATELET COUNT AUTOMATED 188 10*3/uL (130-400); RED BLOOD COUNT 4.59 10*6/uL (4.10-5.10); RED CELL DISTRI WIDTH 12.3 % (0-14.5); WHITE BLOOD COUNT 7.7 10*3/uL (4.8-10.8)
[2023-09-09 15:33] LABS: VENOUS PH 7.32 (7.37-7.45)
[2023-09-09 15:49] LABS: ALKALINE PHOSPHATASE 57 U/L (46-116); BUN 17 mg/dl (9-23); CHLORIDE 100 mmol/L (98-107); POTASSIUM 4.5 mmol/L (3.4-5.1); SGPT/ALT 18 U/L (5-49); TOTAL PROTEIN 6.6 gm/dL (6.0-8.0)
[2023-09-09] MEDS ORDERED: INSULIN REGULAR, HUMAN 1 UNIT/0.01 ML IV ONE (16:05)
[2023-09-09] MEDS ORDERED: ACETAMINOPHEN 325 MG TAB PO ONE (16:30)
== END 2023-09-09 17:17 | disposition home or self-care (01) ==
LOC: ED 14:54
PROVIDERS: Physician Assistant Medical
DX: R42 Dizziness and giddiness (principal); E11.9 Type 2 diabetes mellitus without complications; F32.A Depression, unspecified; F41.9 Anxiety disorder, unspecified; E78.00 Pure hypercholesterolemia, unspecified; I10 Essential (primary) hypertension; I48.91 Unspecified atrial fibrillation; K21.9 Gastro-esophageal reflux disease without esophagitis; Z88.8 Allergy status to other drugs, medicaments and biological substances; Z98.51 Tubal ligation status; Z98.890 Other specified postprocedural states; Z87.891 Personal history of nicotine dependence

== ENCOUNTER → 2023-09-15 | Outpatient (CLI) | payer OTHER ==
[~2023-09-15] MED LIST changes: +SINCALIDE IV ONE; +SODIUM CHLORIDE 0.9% IV ONE
== END ==
LOC: NM 01:17
PROVIDERS: ATTEND Physician Assistant
DX: R10.9 Unspecified abdominal pain (principal); E11.9 Type 2 diabetes mellitus without complications; K57.30 Diverticulosis of large intestine without perforation or abscess without bleeding

== ENCOUNTER 2023-11-29 19:13 | Emergency (ER) | payer OTHER ==
[~2023-11-29] VITALS: Ht 152.4 cm; Wt 77.1 kg
[~2023-11-29 19:13] MED LIST changes: -SINCALIDE IV ONE; -SODIUM CHLORIDE 0.9% IV ONE
[2023-11-29] MEDS ORDERED: METHOCARBAMOL 500 MG TAB PO ONE ×2 (19:30→23:05)
[2023-11-29 19:34] LABS: BASO % 0.4 % (0.0-1.0); EOS # 0.1 10*3/uL (0.0-0.4); EOS % 0.6 % (1.0-4.0); HEMATOCRIT 40.5 % (37.0-47.0); LYMPH # 1.5 10*3/uL (1.3-4.4); LYMPH % 16.3 % (27.0-41.0); MEAN CELL VOLUME 94.2 fl (81.0-99.0); MEAN CORPUSCULAR HGB CONC 31.9 g/dl (33.0-37.0); MEAN PLATELET VOLUME 10.3 fl (9.6-12.3); MONO # 0.5 10*3/uL (0.1-1.0); MONO % 5.3 % (3.0-9.0); NEUT # 7.2 10*3/uL (2.3-7.9); NEUT % 77.2 % (47.0-73.0); PLATELET COUNT AUTOMATED 253 10*3/uL (130-400); RED CELL DISTRI WIDTH 12.1 % (0-14.5); WHITE BLOOD COUNT 9.3 10*3/uL (4.8-10.8)
[2023-11-29 19:46] LABS: ACT PARTIAL THROMBO TIME 24.7 SECONDS (20.0-32.1)
[2023-11-29 19:58] LABS: POTASSIUM 4.1 mmol/L (3.4-5.1)
[2023-11-29] MEDS ORDERED: INSULIN REGULAR, HUMAN 1 UNIT/0.01 ML IV ONE (20:05)
[2023-11-29] MEDS ORDERED: SODIUM CHLORIDE 0.9% 1,000 ML IV ONE (20:05)
[2023-11-29 20:24] LABS: BILIRUBIN Negative (Negative); BLOOD Negative (Negative); CLARITY Clear (Clear); COLOR Yellow (Yellow); GLUCOSE 3+ (Negative); KETONE Negative (Negative); LEUKO ESTERASE Negative (Negative); NITRITE Negative (Negative); SPECIFIC GRAVITY 1.025 (1.001-1.030); UROBILINOGEN 0.2 E.U./dl (0.0-1.0)
[2023-11-29 20:44] LABS: WBC 0-2 wbc/hpf (0-5); YEAST 1+
[2023-11-29] MEDS ORDERED: METHOCARBAMOL500 M1 PO (23:05)
== END 2023-11-29 23:10 | disposition home or self-care (01) ==
LOC: ED 19:13
PROVIDERS: Internal Medicine
DX: R25.2 Cramp and spasm (principal); E11.65 Type 2 diabetes mellitus with hyperglycemia; F32.A Depression, unspecified; F41.9 Anxiety disorder, unspecified; E78.00 Pure hypercholesterolemia, unspecified; I10 Essential (primary) hypertension; I48.91 Unspecified atrial fibrillation; K21.9 Gastro-esophageal reflux disease without esophagitis; Z79.4 Long term (current) use of insulin; Z88.1 Allergy status to other antibiotic agents; Z88.8 Allergy status to other drugs, medicaments and biological substances; Z98.890 Other specified postprocedural states; Z98.51 Tubal ligation status; Z87.891 Personal history of nicotine dependence